=== PATIENT | female | born 2000 | race Two or more races ===

== ENCOUNTER 2021-04-05 20:14 | Inpatient (IN) ==
[2021-04-05 21:16] LABS: Basophils # (auto) 0.01 K/uL (0-0.2); Basophils % (auto) 0.1 %; Eosinophils # (auto) 0.03 K/uL (0-0.5); Eosinophils % (auto) 0.2 %; Hematocrit (blood only) 37.7 % (37-47); Hemoglobin 12.4 g/dL (12.0-16.0); Immature Granulocytes # (auto) 0.13 K/uL (0.00-0.02); Immature Granulocytes % (auto) 0.8 %; Lymphocytes # (auto) 1.68 K/uL (1.2-3.4); Lymphocytes % (auto) 10.6 %; Mean Corpuscular Hemoglobin 24.8 pg (25-34); Mean Corpuscular Hgb Conc 32.9 g/dL (32-36); Mean Corpuscular Volume 75.2 fL (80-100); Mean Platelet Volume 11.5 fL (7.4-10.4); Monocytes # (auto) 0.82 K/uL (0.11-0.59); Monocytes % (auto) 5.2 %; Neutrophils # (auto) 13.17 K/uL (1.4-6.5); Neutrophils % (auto) 83.1 %; Platelet Count 289 K/uL (130-400); RDW Coefficient of Variation 13.2 % (11.5-14.5); RDW Standard Deviation 36.7 fL (36.4-46.3); Red Blood Count 5.01 M/uL (4.2-5.4); White Blood Count 15.84 K/uL (4.8-10.8)
[2021-04-05 21:19] LABS: iSTAT Creatinine 0.7 mg/dl; iSTAT Hemoglobin 12.6 g/dl (12.0-16.0); iSTAT Ionized Calcium 1.18 mmol/l; iSTAT Potassium 3.9 mmol/L (3.3-5.0)
[2021-04-05 21:23] LABS: iSTAT Creatinine 0.7 mg/dl; iSTAT Hemoglobin 13.3 g/dl (12.0-16.0); iSTAT Ionized Calcium 1.22 mmol/l; iSTAT Potassium 3.9 mmol/L (3.3-5.0)
[2021-04-05 21:29] LABS: INR 1.1 (0.9-1.1); Partial Thromboplastin Time 26.8 Seconds (21.0-31.0); Prothrombin Time 10.9 Seconds (9.0-12.0)
[2021-04-05 21:42] LABS: BUN Creatinine Ratio 22.2 (10-20); Calcium 8.8 mg/dl (8.5-10.1); Creatinine Clr Calc Pharmacy 85.7 ml/min; Est GFR (African American) 140.7 ml/min; Est GFR (Non-African American) 121.4 ml/min; Potassium 3.9 mmol/L (3.5-5.1)
[2021-04-05] MEDS ORDERED: OPTIRAY 320 100ml IV ONE (22:18)
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
[2021-04-05] MEDS ORDERED: SODIUM CHLORIDE 0.9% 1000ML 1,000 ML IV ONE (22:53)
[2021-04-05] MEDS ORDERED: oxyCODONE/ACETAMINOPHEN 5mg/325mg TAB PO STA (23:12)
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
[2021-04-06] MEDS ORDERED: oxyCODONE/ACETAMINOPHEN 5mg/325mg TAB PO PRN (01:02)
[2021-04-06] MEDS: ACETAMINOPHEN 500 MG TAB PO SCH ×3 (01:26→18:13)
[2021-04-06] MEDS ORDERED: MAGNESIUM HYDROXIDE SUSP 30 ML UDC PO PRN (01:55)
[2021-04-06] MEDS ORDERED: bisacodyL 10 MG SUPP PR PRN (01:55)
[2021-04-06] MEDS ORDERED: ONDANSETRON INJ 2 MG/ML 2 ML VIAL IV PRN (01:55)
[2021-04-06] MEDS ORDERED: HYDROmorphone INJ 0.5 MG/0.5 ML SYR IV PRN ×2 (01:55)
[2021-04-06] MEDS ORDERED: KETOROLAC TROMETHAMINE 15 MG/ML VIAL IV PRN (01:55)
[2021-04-06] MEDS ORDERED: oxyCODONE HCL IR 5 MG TAB (IMMEDIATE RELEASE) PO PRN ×2 (01:55)
[2021-04-06] MEDS ORDERED: NALOXONE HCL 0.4 MG/1 ML VIAL/CARP IV PRN (01:55)
[2021-04-06 03:26] LABS: Basophils # (auto) 0.01 K/uL (0-0.2); Basophils % (auto) 0.1 %; Hematocrit (blood only) 31.7 % (37-47); Hemoglobin 10.1 g/dL (12.0-16.0); Immature Granulocytes # (auto) 0.05 K/uL (0.00-0.02); Immature Granulocytes % (auto) 0.3 %; Lymphocytes # (auto) 1.26 K/uL (1.2-3.4); Lymphocytes % (auto) 8.7 %; Mean Corpuscular Hgb Conc 31.9 g/dL (32-36); Mean Corpuscular Volume 75.5 fL (80-100); Mean Platelet Volume 10.9 fL (7.4-10.4); Monocytes # (auto) 0.89 K/uL (0.11-0.59); Monocytes % (auto) 6.1 %; Neutrophils # (auto) 12.27 K/uL (1.4-6.5); Neutrophils % (auto) 84.8 %; Platelet Count 229 K/uL (130-400); RDW Coefficient of Variation 13.3 % (11.5-14.5); RDW Standard Deviation 36.7 fL (36.4-46.3); White Blood Count 14.48 K/uL (4.8-10.8)
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
[2021-04-06] MEDS ORDERED: ASPIRIN 325 MG ECTAB PO SCH (09:00)
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
--- NOTE | 2021-04-06 15:27 | Electrocardiogram Report ---
Test Reason : Blood Pressure : / mmHG Vent. Rate : 089 BPM Atrial Rate : 089 BPM P-R Int : 128 ms QRS Dur : 082 ms QT Int : 360 ms P-R-T Axes : 068 093 039 degrees QTc Int : 438 ms Normal sinus rhythm Rightward axis Borderline ECG No previous ECGs available Confirmed by Gallo Hylton ([id number]) on 04/06/2021 3:27:00 PM Referred By: REFERRED SELF Confirmed By:Gallo Hylton
--- NOTE | 2021-04-06 17:11 | XRay Report ---
XR knee RT 3V HISTORY: 20 years-old Female knee pain acute right-sided knee pain COMPARISON: None TECHNIQUE: 3 views of the right knee FINDINGS: Moderate anteromedial soft tissue swelling. Moderate sized lipohemarthrosis. There is mild cortical i rregularity noted involving the medial cortex of the medial tibial plateau. IMPRESSION: 1. Cortical irregularity involving the medial cortex of the medial tibial plateau is suggestive of an acute fracture. 2. Moderate soft tissue swelling with moderate lipohemarthrosis. ACT 112: Negative or not required by law. The above report was generated using voice recognition software. It may contain grammatical, syntax o r spelling errors. Electronically signed by: Henry Randolph M.D. 04/06/2021 5:09 PM
--- NOTE | 2021-04-06 17:24 | Orthopedic Progress Note ---
Date of Service April 06, 2021 Assessment & Plan (1) Bilateral fracture of pubic rami: She was seen and examined by Dr. Alvarado today. Questions were answered. She can weight bear as tolerated. No acute findings on the knee xray. Her knee effusion is likely from a bone contusion. She can be discharged today. Follow up with orthopedics either here or back home in approx 2-3 weeks. She can take tylenol or ibuprofen for pain and we will send in some pain medication for her tonight as well. (2) Right knee pain: Subjective . Patient seen with Dr. Alvarado today. Her parents are here as well. She has some right knee pain that she just noticed today during PT. Review of Systems All systems reviewed & are unremarkable except as noted in HPI & below. Physical Exam .Right knee: +effusion, Good ROM. No instability. Tender to palpation on the medial side of her knee. Results & Data Results & Data Laboratory Results . Diagnostic Findings . xrays obtained of the knee show no obvious fracture. Small calcification medial. Does not look acute. PG Care Time/CCT Total # of Minutes Spent Total Time Spent with Patient: Total time spent is greater than 50% in coordination of care (as documented) at patient's floor/unit and/or counseling patient: Coding Level of Care Code 49341 Subseq Hosp Care Lvl 2 Diagnoses Bilateral fracture of pubic rami S32.591A; S32.592A Encounter type: initial encounter Fracture type: closed Right knee pain M25.561 (1) Bilateral fracture of pubic rami Encounter type: initial encounter Fracture type: closed Qualified Code(s): S32.591A - Other specified fracture of right pubis, initial encounter for closed fracture; S32.592A - Other specified fracture of left pubis, initial encounter for closed fracture
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
[2021-04-06] MEDS ORDERED: DOCUSATE SODIUM/SENNA 50/8.6MG TAB PO SCH (21:00)
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
== END 2021-04-06 17:30 | disposition home or self-care (01) | DRG 536 ==
LOC: ED 20:14 → EDINP 04-06 00:35